=== PATIENT | female | born 1985 | race Caucasian/White ===

== ENCOUNTER → 2016-06-09 | Outpatient (CLI) | payer OTHER ==
[~2016-06-09] MED LIST: ATIV0.5T3 PO; CLINDAMYCIN PO; COLA50CA3 PO; IBUP80TA PO; KEFL250C6 PO; LEVO500T PO; OXYC-208 PO; PERCOCET PO; PREN27TA3 PO; TYLE325T5 PO
[2016-06-10 08:40] LABS: HIV SCRN NEGATIVE (NEGATIVE); HIV SCRN1 NEGATIVE (NEGATIVE)
[2016-06-10 08:41] LABS: CONTROL LINE INT CTR LINE PRESENT
== END ==
LOC: M SMT 14:46
PROVIDERS: ATTEND Advanced Practice Midwife
DX: Z11.3 Encounter for screening for infections with a predominantly sexual mode of transmission (principal)

== ENCOUNTER 2016-06-29 06:13 | Emergency (ER) | payer OTHER ==
[2016-06-29 08:26] LABS: BASO % 0.4 % (0.0-1.0); EOS # 0.3 K/mm3 (0.0-0.50); EOS % 3.3 % (0.0-3.0); LARGE UNSTAINED CELL # 0.1 K/mm3 (0.0-0.4); LARGE UNSTAINED CELL % 1.1 % (0.0-4.0); LYMPH # 2.2 K/mm3 (1.5-4.5); LYMPH % 22.4 % (24.0-44.0); MEAN CORPUSCULAR HEMOGLOBIN 30.7 pg (27.0-33.0); MEAN CORPUSCULAR HGB CONC 34.9 g/dl (32.0-36.5); MEAN CORPUSCULAR VOLUME 87.9 fl (80.0-96.0); MONO # 0.6 K/mm3 (0.0-0.8); MONO % 6.3 % (0.0-5.0); NEUTROPHILS # 6.3 K/mm3 (1.8-7.7); NEUTROPHILS % 66.6 % (36.0-66.0); PLATELET COUNT, AUTOMATED 321 k/mm3 (150-450); RED CELL DISTRIBUTION WIDTH 12.4 % (11.5-14.5); WHITE BLOOD COUNT 9.4 K/mm3 (4.0-10.0)
[2016-06-29 08:35] LABS: ALBUMIN 3.3 GM/DL (3.2-5.2); ALBUMIN/GLOBULIN RATIO 0.92 (1.00-1.93); ALKALINE PHOSPHATASE 113 U/L (45-117); ALT/SGPT 69 U/L (12-78); ANION GAP 9 MEQ/L (8-16); AST/SGOT 25 U/L (15-37); BILIRUBIN,DIRECT < 0.1 MG/DL (0.0-0.2); BILIRUBIN,TOTAL < 0.1 MG/DL (0.2-1.0); BLOOD UREA NITROGEN 10 MG/DL (7-18); CALCIUM LEVEL 8.8 MG/DL (8.5-10.1); CARBON DIOXIDE LEVEL 25 MEQ/L (21-32); CHLORIDE LEVEL 108 MEQ/L (98-107); CREATININE FOR GFR 0.61 MG/DL (0.55-1.02); GLOMERULAR FILTRATION RATE > 60.0 (>60); GLUCOSE, FASTING 143 MG/DL (70-105); POTASSIUM SERUM 4.1 MEQ/L (3.5-5.1); SODIUM LEVEL 142 MEQ/L (136-145); TOTAL PROTEIN 6.9 GM/DL (6.4-8.2)
[2016-06-29 08:52] LABS: CONTROL LINE UCG INT CTR LINE PRESENT
[2016-06-29] MEDS ORDERED: GI COCKTAIL 50ML BTL(HYOSCYAMINE/MAALOX/LIDOCAINE VISCOUS)(1:3:1) As Ordered ONE (09:27)
[2016-06-29] MEDS ORDERED: PANTOPRAZOLE 40MG INJ (PROTONIX) (C9113) As Ordered ONE (09:27)
[2016-06-29] MEDS ORDERED: ONDANSETRON 4MG/2ML VIAL (J2405) As Ordered ONE (09:27)
--- NOTE | 2016-06-29 10:35 | EDDOCDS ---
Nurse's Notes [facility] Name: Naina Hartman Age: 30 yrs Sex: Female : 1985 Arrival Date: 06/29/2016 Time: 06:13 Bed 13 Private MD: Diagnosis: Abdominal and pelvic pain;Nausea and vomiting Presentation: 06/29 06:20 Presenting complaint: Patient states: she has been having upset stomach for several cz days better for one but than pain and discomfort returned .pt reports sulfur tasting belching. Risk factors: the patient reports no vaginal bleeding. Adult Sepsis Screening: The patient does not have new or worsening altered mentation. Patient's respiratory rate is less than 22. Systolic blood pressure is greater than 100. Patient has a qSOFA score of 0- Negative Sepsis Screen. Suicide/Homicide risk assessment- the patient denies having any suicidal and/or homicidal ideations and does not present with any other emotional, behavioral or mental health complaints. Status: Patient is not a center sales and service associate or dependent. Transition of care: patient was not received from another setting of care. 06:20 Acuity: TORREY Level 3 cz 06:20 Method Of Arrival: Walkin/Carried/Asstd cz Triage Assessment: 06:26 General: Appears uncomfortable. Pain: Location: abdomen Pain currently is 6 out of 10 cz on a pain scale. HIV screening NA for this visit Offered previously. 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 Xanax Oral as needed - PMHx: Anxiety; - PSHx: ; laproscopic procedures; back surgery for tumor; - Social history: Smoking status: Patient uses tobacco products, light tobacco smoker. No barriers to communication noted, The patient speaks fluent Niuean, Speaks appropriately for age. - Family history: Not pertinent. - : The pt / caregiver states he / she is not on anticoagulants. Home medication list is obtained from the patient. - Exposure Risk Screening:: None identified. Screenin:02 Screening information is obtained from the patient. Fall risk: No risks identified. ml6 Assistance ADL's: requires no assistance with activities of daily living. Abuse/DV Screen: The patient / caregiver reports he/she is: not in a situation that causes fear, pain or injury. Nutritional screening: No deficits noted. Advance Directives: Currently, there is no health care proxy. home support is adequate. Assessment: 08:01 General: Appears in no apparent distress, Behavior is appropriate for age, cooperative. ml6 Pain: Location: right upper quadrant and left upper quadrant Pain currently is 5 out of 10 on a pain scale. Pain does not radiate. Quality of pain is described as aching, crampy, Pain began 2-3 days ago Is continuous Alleviated by nothing. Aggravated by increased activity. Neurological: No deficits noted. Level of Consciousness is awake, alert, Oriented to person, place, time. Cardiovascular: No deficits noted. Capillary refill < 3 seconds is brisk in bilateral fingers toes Heart tones S1 S2 present. Respiratory: No deficits noted. Airway is patent Respiratory effort is even, unlabored, Respiratory pattern is regular, symmetrical, Breath sounds are clear bilaterally. GI: Abdomen is obese, Bowel sounds present X 4 quads. Abd is soft X 4 quads Abd is tender to palpation in right upper quadrant and left upper quadrant Denies diarrhea, nausea, vomiting. 10:32 General: Appears in no apparent distress, Behavior is appropriate for age, cooperative. ml6 Pain: Denies pain. Neurological: No deficits noted. Level of Consciousness is awake, alert, Oriented to person, place, time. Cardiovascular: No deficits noted. Capillary refill < 3 seconds is brisk in bilateral fingers toes. Respiratory: No deficits noted. Airway is patent Respiratory effort is even, unlabored, Respiratory pattern is regular, symmetrical, Breath sounds are clear bilaterally. GI: Abdomen is obese, Bowel sounds present X 4 quads. Abd is soft and non tender Abd is soft X 4 quads. Vital Signs: 06:26 BP 137 / 104; Pulse 100; Resp 16; Temp 95.1(T); Pulse Ox 100% on R/A; Weight 102.06 kg; cz Height 5 ft. 6 in. (167.64 cm); 08:01 Temp 97.8(O); ml6 06:26 Body Mass Index 36.32 (102.06 kg, 167.64 cm) cz Vitals: 06:26 Log In Time: June 29, 2016 at 06:13. ED Course: 06:15 Patient visited by Laure Haque. gjb 06:15 Patient moved to Waiting gjb 06:20 Patient moved to Triage 1 cz 06:25 Triage Initiated cz 06:28 Patient moved to Pre RCE cz 07:12 Patient moved to 13 [facility] 07:24 Ashley Moralez MD is Attending Physician. fg 07:24 Patient visited by Ashley Moralez MD. fg 07:44 Patient visited by Bo Sutton PCA. jlf 08:00 Basic Metabolic Profile Sent. ml6 08:00 CBC with Diff Sent. ml6 08:00 Lipase Sent. ml6 08:00 Liver Profile Sent. ml6 08:00 Urinalysis Sent. ml6 08:00 Urine Test-In Lab Sent. ml6 08:00 Urine Culture Sent. ml6 08:00 Inserted peripheral IV: 20gauge IV in right forearm and blood collected. Patient ml6 tolerated the procedure well. Labs drawn. (by ED staff). Sent per order to lab. 08:02 The patient / caregiver is instructed regarding the plan of care and ED course. ml6 08:04 [facility] Payment Agreement was scanned into [employer] and attached to record. lg 08:17 Patient visited by Ferdinand Jackson RN. ml6 09:23 [facility] Payment Agreement was scanned into [employer] and attached to record. lg 09:25 Patient visited by Ferdinand Jackson RN. ml6 10:15 Patient visited by Bo Sutton PCA. [facility] 10:33 Discontinued IV bleeding controlled, pressure dressing applied, No redness/swelling at ml6 site. No procedures done that require assistance. Administered Medications: 09:25 Drug: pantoprazole 40 mg [pantoprazole 40 mg intravenous solution] Route: IV; Rate: ml6 bolus; Site: right forearm; 09:26 Drug: Ondansetron 4 mg [ondansetron HCl 2 mg/mL intravenous solution (2 mL)] Route: ml6 IVP; Site: right forearm; 09:26 Drug: GI Cocktail - (Alum-Mag Hydroxide-Simeth Suspension 225 mg-200 mg-25 mg/5 mL 30 ml6 ml, Lidocaine Liquid 2 % 10 ml, Hyoscyamine Liquid 10 ml) Route: PO; Order Results: Lab Order: Basic Metabolic Profile; SPEC'M 06/29/16 07:42 Test: GLUCOSE, FASTING; Value: 143; Range: 70-105; Abnormal: Above high normal; Units: MG/DL; Status: F Test: BLOOD UREA NITROGEN; Value: 10; Range: 7-18; Units: MG/DL; Status: F Test: CREATININE FOR GFR; Value: 0.61; Range: 0.55-1.02; Units: MG/DL; Status: F Test: GLOMERULAR FILTRATION RATE; Value: > 60.0; Range: >60; Status: F Test: SODIUM LEVEL; Value: 142; Range: 136-145; Units: MEQ/L; Status: F Test: POTASSIUM SERUM; Value: 4.1; Range: 3.5-5.1; Units: MEQ/L; Status: F Test: CHLORIDE LEVEL; Value: 108; Range: 98-107; Abnormal: Above high normal; Units: MEQ/L; Status: F Test: CARBON DIOXIDE LEVEL; Value: 25; Range: 21-32; Units: MEQ/L; Status: F Test: ANION GAP; Value: 9; Range: 8-16; Units: MEQ/L; Status: F Test: CALCIUM LEVEL; Value: 8.8; Range: 8.5-10.1; Units: MG/DL; Status: F Test Note: ; Units are mL/min/1.73 m2 Chronic Kidney Disease Staging per NKF: Stage I & II GFR >=60 Normal to Mildly Decreased Stage III GFR 30-59 Moderately Decreased Stage IV GFR 15-29 Severely Decreased Stage V GFR <15 Very Little GFR Left ESRD GFR <15 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 Lab Order: CBC with Diff; SPEC'M 06/29/16 07:42 Test: WHITE BLOOD COUNT; Value: 9.4; Range: 4.0-10.0; Units: K/mm3; Status: F Test: RED BLOOD COUNT; Value: 5.00; Range: 4.00-5.40; Units: M/mm3; Status: F Test: HEMOGLOBIN; Value: 15.3; Range: 12.0-16.0; Units: g/dl; Status: F Test: HEMATOCRIT; Value: 44.0; Range: 36.0-47.0; Units: %; Status: F Test: MEAN CORPUSCULAR VOLUME; Value: 87.9; Range: 80.0-96.0; Units: fl; Status: F Test: MEAN CORPUSCULAR HEMOGLOBIN; Value: 30.7; Range: 27.0-33.0; Units: pg; Status: F Test: MEAN CORPUSCULAR HGB CONC; Value: 34.9; Range: 32.0-36.5; Units: g/dl; Status: F Test: RED CELL DISTRIBUTION WIDTH; Value: 12.4; Range: 11.5-14.5; Units: %; Status: F Test: PLATELET COUNT, AUTOMATED; Value: 321; Range: 150-450; Units: k/mm3; Status: F Test: NEUTROPHILS %; Value: 66.6; Range: 36.0-66.0; Abnormal: Above high normal; Units: %; Status: F Test: LYMPH %; Value: 22.4; Range: 24.0-44.0; Abnormal: Below low normal; Units: %; Status: F Test: MONO %; Value: 6.3; Range: 0.0-5.0; Abnormal: Above high normal; Units: %; Status: F Test: EOS %; Value: 3.3; Range: 0.0-3.0; Abnormal: Above high normal; Units: %; Status: F Test: BASO %; Value: 0.4; Range: 0.0-1.0; Units: %; Status: F Test: LARGE UNSTAINED CELL %; Value: 1.1; Range: 0.0-4.0; Units: %; Status: F Test: NEUTROPHILS #; Value: 6.3; Range: 1.8-7.7; Units: K/mm3; Status: F Test: LYMPH #; Value: 2.2; Range: 1.5-4.5; Units: K/mm3; Status: F Test: MONO #; Value: 0.6; Range: 0.0-0.8; Units: K/mm3; Status: F Test: EOS #; Value: 0.3; Range: 0.0-0.50; Units: K/mm3; Status: F Test: BASO #; Value: 0.0; Range: 0.0-0.2; Units: K/mm3; Status: F Test: LARGE UNSTAINED CELL #; Value: 0.1; Range: 0.0-0.4; Units: K/mm3; Status: F Lab Order: Lipase; SPEC'M 06/29/16 07:42 Test: LIPASE; Value: 262; Range: 73-393; Units: U/L; Status: F Lab Order: Liver Profile; [facility] 06/29/16 07:42 Test: AST/SGOT; Value: 25; Range: 15-37; Units: U/L; Status: F Test: ALT/SGPT; Value: 69; Range: 12-78; Units: U/L; Status: F Test: ALKALINE PHOSPHATASE; Value: 113; Range: 45-117; Units: U/L; Status: F Test: BILIRUBIN,TOTAL; Value: < 0.1; Range: 0.2-1.0; Abnormal: Below low normal; Units: MG/DL; Status: F Test: BILIRUBIN,DIRECT; Value: < 0.1; Range: 0.0-0.2; Units: MG/DL; Status: F Test: TOTAL PROTEIN; Value: 6.9; Range: 6.4-8.2; Units: GM/DL; Status: F Test: ALBUMIN; Value: 3.3; Range: 3.2-5.2; Units: GM/DL; Status: F Test: ALBUMIN/GLOBULIN RATIO; Value: 0.92; Range: 1.00-1.93; Abnormal: Below low normal; Status: F Lab Order: Urinalysis; [facility] 06/29/16 07:42 Test: APPEARANCE, URINE; Value: HAZY; Range: CLEAR; Status: F Test: COLOR, URINE; Value: YELLOW; Range: YELLOW; Status: F Test: PH,URINE; Value: 5.0; Range: 5.0-9.0; Units: UNITS; Status: F Test: SPECIFIC GRAVITY URINE AUTO; Value: 1.025; Range: 1.002-1.035; Status: F Test: PROTEIN, URINE AUTO; Value: NEGATIVE; Range: NEGATIVE; Units: mg/dL; Status: F Test: GLUCOSE, URINE (UA) AUTO; Value: NEGATIVE; Range: NEGATIVE; Units: mg/dL; Status: F Test: KETONE, URINE AUTO; Value: NEGATIVE; Range: NEGATIVE; Units: mg/dL; Status: F Test: UROBILINOGEN, URINE AUTO; Value: 0.2; Range: 0.0-2.0; Units: mg/dL; Status: F Test: BILIRUBIN, URINE AUTO; Value: NEGATIVE; Range: NEGATIVE; Status: F Test: NITRITE, URINE AUTO; Value: NEGATIVE; Range: NEGATIVE; Status: F Test: LEUKOCYTE ESTERASE, URINE AUTO; Value: NEGATIVE; Range: NEGATIVE; Status: F Test: BLOOD, URINE BLOOD; Value: NEGATIVE; Range: NEGATIVE; Status: F Test: WBC, URINE AUTO; Value: 2; Range: 0-3; Units: /HPF; Status: F Test: RBC, URINE AUTO; Value: 3; Range: 0-3; Units: /HPF; Status: F Test: BACTERIA, URINE AUTO; Value: NEGATIVE; Range: NEGATIVE; Status: F Test: SQUAMOUS EPITHELIAL CELL UR AU; Value: 4; Range: 0-6; Units: /HPF; Status: F Test: MUCUS, URINE; Value: SMALL; Range: NEGATIVE; Status: F Test: HYALINE CAST, URINE AUTO; Value: 0; Range: 0-1; Units: /LPF; Status: F Lab Order: Urine Test-In Lab; SPEC'M 06/29/16 07:42 Test: URINE PREG TEST; Value: NEGATIVE; Range: NEGATIVE; Status: F Outcome: 10:17 Discharge ordered by Provider. fg 10:33 Discharge Assessment: patient administered narcotics - no. The following High Risk ml6 Discharge criteria are identified: None. Condition: stable. Discharge instructions given to patient, Instructed on discharge instructions, follow up and referral plans. medication usage, Demonstrated understanding of instructions, medications, Pt was receptive of discharge instructions/ teaching. No special radiology studies were completed. Property :Personal belongings accompany Pt. 10:34 Patient left the ED. ml6 Signatures: Florentin Mcintyre, Balbir Holman RN, Ferdinand Flower lg, RN RN ml6 Bo Sutton, CLINICAL EDUCATION MANAGER CLINICAL EDUCATION MANAGER jlf Jaye Garcia, Videotape Sales Representative Unit Ashley Mccormick MD MD fg Beck, Gabriela gjb MTDD
--- NOTE | 2016-06-29 10:35 | EDDOCDS ---
Physician Documentation [facility] Name: Naina Hartman Age: 30 yrs Sex: Female : 1985 Arrival Date: 06/29/2016 Time: 06:13 Bed 13 Private MD: Disposition: 06/29/16 10:17 Discharged to Home/Self Care. Impression: Abdominal and pelvic pain, Nausea and vomiting. - Condition is Stable. - Discharge Instructions: Abdominal Pain, Adult, Nausea and Vomiting, [id number]. - Medication Reconciliation, Local Pharmacy Hours form. - Follow up: Private Physician; When: Call to arrange an appointment; Reason: Continuance of care. - Problem is new. - Symptoms have improved. Historical: - Allergies: SULFA (SULFONAMIDES); - Home Meds: 1. Xanax Oral as needed - PMHx: Anxiety; - PSHx: ; laproscopic procedures; back surgery for tumor; - Social history: Smoking status: Patient uses tobacco products, light tobacco smoker. No barriers to communication noted, The patient speaks fluent Yoruba, Speaks appropriately for age. - Family history: Not pertinent. - : The pt / caregiver states he / she is not on anticoagulants. Home medication list is obtained from the patient. - Exposure Risk Screening:: None identified. 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 6 in. (167.64 cm); 08:01 Temp 97.8(O); ml6 06:26 Body Mass Index 36.32 (102.06 kg, 167.64 cm) cz MDM: 07:24 IV Saline Lock ordered. fg 07:24 Undress patient appropriately for examination ordered. fg 07:25 Basic Metabolic Profile Ordered. EDMS 07:25 CBC with Diff Ordered. EDMS 07:25 Lipase Ordered. EDMS 07:25 Liver Profile Ordered. EDMS 07:25 Urinalysis Ordered. EDMS 07:25 Urine Test-In Lab Ordered. EDMS 07:25 Urine Culture Ordered. EDMS 07:26 NOTHING BY MOUTH+DIET ordered. EDMS 07:44 Financial registration complete. lg 08:04 [facility] Payment Agreement was scanned into [employer] and attached to record. lg 08:23 Ondansetron 4 mg IVP once ordered. fg 08:23 GI Cocktail - (Alum-Mag Hydroxide-Simeth 30 ml, Lidocaine 10 ml, Hyoscyamine 10 ml) PO fg once; Pre-mixed 50mL unit dose ordered. 08:23 pantoprazole 40 mg IV at bolus once ordered. fg 09:23 [facility] [place] Agreement was scanned into [employer] and attached to record. lg Administered Medications: 09:25 Drug: pantoprazole 40 mg [pantoprazole 40 mg intravenous solution] Route: IV; Rate: ml6 bolus; Site: right forearm; 09:26 Drug: Ondansetron 4 mg [ondansetron HCl 2 mg/mL intravenous solution (2 mL)] Route: ml6 IVP; Site: right forearm; 09:26 Drug: GI Cocktail - (Alum-Mag Hydroxide-Simeth Suspension 225 mg-200 mg-25 mg/5 mL 30 ml6 ml, Lidocaine Liquid 2 % 10 ml, Hyoscyamine Liquid 10 ml) Route: PO; Signatures: Dispatcher [employer] EDMS Florentin Mcintyre, BLESSING RN cz Balbir Grider, Fly Reg lg Ferdinand Jackson RN RN ml6 Ashley Moralez MD MD The chart was reviewed and I authenticate all verbal orders and agree with the evaluation and treatment provided.Attachments: 09:23 [facility] Payment Agreement lg MTDD
--- NOTE | 2016-07-01 11:35 | EDDOCDS ---
Nurse's Notes [facility] Name: Naina Hartman Age: 30 yrs Sex: Female : 1985 Arrival Date: 06/29/2016 Time: 06:13 Bed 13 Private MD: Diagnosis: Abdominal and pelvic pain;Nausea and vomiting Presentation: 06/29 06:20 Presenting complaint: Patient states: she has been having upset stomach for several cz days better for one but than pain and discomfort returned .pt reports sulfur tasting belching. Risk factors: the patient reports no vaginal bleeding. Adult Sepsis Screening: The patient does not have new or worsening altered mentation. Patient's respiratory rate is less than 22. Systolic blood pressure is greater than 100. Patient has a qSOFA score of 0- Negative Sepsis Screen. Suicide/Homicide risk assessment- the patient denies having any suicidal and/or homicidal ideations and does not present with any other emotional, behavioral or mental health complaints. Status: Patient is not a nutrition services manager or dependent. Transition of care: patient was not received from another setting of care. 06:20 Acuity: TORREY Level 3 cz 06:20 Method Of Arrival: Walkin/Carried/Asstd cz Triage Assessment: 06:26 General: Appears uncomfortable. Pain: Location: abdomen Pain currently is 6 out of 10 cz on a pain scale. HIV screening NA for this visit Offered previously. 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 Xanax Oral as needed - PMHx: Anxiety; - PSHx: ; laproscopic procedures; back surgery for tumor; - Social history: Smoking status: Patient uses tobacco products, light tobacco smoker. No barriers to communication noted, The patient speaks fluent Pakistani, Speaks appropriately for age. - Family history: Not pertinent. - : The pt / caregiver states he / she is not on anticoagulants. Home medication list is obtained from the patient. - Exposure Risk Screening:: None identified. Screenin:02 Screening information is obtained from the patient. Fall risk: No risks identified. ml6 Assistance ADL's: requires no assistance with activities of daily living. Abuse/DV Screen: The patient / caregiver reports he/she is: not in a situation that causes fear, pain or injury. Nutritional screening: No deficits noted. Advance Directives: Currently, there is no health care proxy. home support is adequate. Assessment: 08:01 General: Appears in no apparent distress, Behavior is appropriate for age, cooperative. ml6 Pain: Location: right upper quadrant and left upper quadrant Pain currently is 5 out of 10 on a pain scale. Pain does not radiate. Quality of pain is described as aching, crampy, Pain began 2-3 days ago Is continuous Alleviated by nothing. Aggravated by increased activity. Neurological: No deficits noted. Level of Consciousness is awake, alert, Oriented to person, place, time. Cardiovascular: No deficits noted. Capillary refill < 3 seconds is brisk in bilateral fingers toes Heart tones S1 S2 present. Respiratory: No deficits noted. Airway is patent Respiratory effort is even, unlabored, Respiratory pattern is regular, symmetrical, Breath sounds are clear bilaterally. GI: Abdomen is obese, Bowel sounds present X 4 quads. Abd is soft X 4 quads Abd is tender to palpation in right upper quadrant and left upper quadrant Denies diarrhea, nausea, vomiting. 10:32 General: Appears in no apparent distress, Behavior is appropriate for age, cooperative. ml6 Pain: Denies pain. Neurological: No deficits noted. Level of Consciousness is awake, alert, Oriented to person, place, time. Cardiovascular: No deficits noted. Capillary refill < 3 seconds is brisk in bilateral fingers toes. Respiratory: No deficits noted. Airway is patent Respiratory effort is even, unlabored, Respiratory pattern is regular, symmetrical, Breath sounds are clear bilaterally. GI: Abdomen is obese, Bowel sounds present X 4 quads. Abd is soft and non tender Abd is soft X 4 quads. Vital Signs: 06:26 BP 137 / 104; Pulse 100; Resp 16; Temp 95.1(T); Pulse Ox 100% on R/A; Weight 102.06 kg; cz Height 5 ft. 6 in. (167.64 cm); 08:01 Temp 97.8(O); ml6 06:26 Body Mass Index 36.32 (102.06 kg, 167.64 cm) cz Vitals: 06:26 Log In Time: June 29, 2016 at 06:13. ED Course: 06:15 Patient visited by Laure Haque. gjb 06:15 Patient moved to Waiting gjb 06:20 Patient moved to Triage 1 cz 06:25 Triage Initiated cz 06:28 Patient moved to Pre RCE cz 07:12 Patient moved to [facility] 07:24 Ashley Moralez MD is Attending Physician. fg 07:24 Patient visited by Ashley Moralez MD. fg 07:44 Patient visited by Bo Sutton PCA. jlf 08:00 Basic Metabolic Profile Sent. ml6 08:00 CBC with Diff Sent. ml6 08:00 Lipase Sent. ml6 08:00 Liver Profile Sent. ml6 08:00 Urinalysis Sent. ml6 08:00 Urine Test-In Lab Sent. ml6 08:00 Urine Culture Sent. ml6 08:00 Inserted peripheral IV: 20gauge IV in right forearm and blood collected. Patient ml6 tolerated the procedure well. Labs drawn. (by ED staff). Sent per order to lab. 08:02 The patient / caregiver is instructed regarding the plan of care and ED course. ml6 08:04 [facility] was scanned into [employer] and attached to record. lg 08:17 Patient visited by Ferdinand Jackson RN. ml6 09:23 [facility] [place] Agreement was scanned into [employer] and attached to record. lg 09:25 Patient visited by Ferdinand Jackson RN. ml6 10:15 Patient visited by Bo Sutton PCA. jlf 10:33 Discontinued IV bleeding controlled, pressure dressing applied, No redness/swelling at ml6 site. No procedures done that require assistance. 17:45 T-Sheet-- Draft Copy was scanned into [employer] and attached to record. klr Administered Medications: 09:25 Drug: pantoprazole 40 mg [pantoprazole 40 mg intravenous solution] Route: IV; Rate: ml6 bolus; Site: right forearm; 09:26 Drug: Ondansetron 4 mg [ondansetron HCl 2 mg/mL intravenous solution (2 mL)] Route: ml6 IVP; Site: right forearm; 09:26 Drug: GI Cocktail - (Alum-Mag Hydroxide-Simeth Suspension 225 mg-200 mg-25 mg/5 mL 30 ml6 ml, Lidocaine Liquid 2 % 10 ml, Hyoscyamine Liquid 10 ml) Route: PO; Order Results: Lab Order: Basic Metabolic Profile; SPEC'M 06/29/16 07:42 Test: GLUCOSE, FASTING; Value: 143; Range: 70-105; Abnormal: Above high normal; Units: MG/DL; Status: F Test: BLOOD UREA NITROGEN; Value: 10; Range: 7-18; Units: MG/DL; Status: F Test: CREATININE FOR GFR; Value: 0.61; Range: 0.55-1.02; Units: MG/DL; Status: F Test: GLOMERULAR FILTRATION RATE; Value: > 60.0; Range: >60; Status: F Test: SODIUM LEVEL; Value: 142; Range: 136-145; Units: MEQ/L; Status: F Test: POTASSIUM SERUM; Value: 4.1; Range: 3.5-5.1; Units: MEQ/L; Status: F Test: CHLORIDE LEVEL; Value: 108; Range: 98-107; Abnormal: Above high normal; Units: MEQ/L; Status: F Test: CARBON DIOXIDE LEVEL; Value: 25; Range: 21-32; Units: MEQ/L; Status: F Test: ANION GAP; Value: 9; Range: 8-16; Units: MEQ/L; Status: F Test: CALCIUM LEVEL; Value: 8.8; Range: 8.5-10.1; Units: MG/DL; Status: F Test Note: ; Units are mL/min/1.73 m2 Chronic Kidney Disease Staging per NKF: Stage I & II GFR >=60 Normal to Mildly Decreased Stage III GFR 30-59 Moderately Decreased Stage IV GFR 15-29 Severely Decreased Stage V GFR <15 Very Little GFR Left ESRD GFR <15 on FITNESS TRAINER Lab Order: CBC with Diff; SPEC'M 06/29/16 07:42 Test: WHITE BLOOD COUNT; Value: 9.4; Range: 4.0-10.0; Units: K/mm3; Status: F Test: RED BLOOD COUNT; Value: 5.00; Range: 4.00-5.40; Units: M/mm3; Status: F Test: HEMOGLOBIN; Value: 15.3; Range: 12.0-16.0; Units: g/dl; Status: F Test: HEMATOCRIT; Value: 44.0; Range: 36.0-47.0; Units: %; Status: F Test: MEAN CORPUSCULAR VOLUME; Value: 87.9; Range: 80.0-96.0; Units: fl; Status: F Test: MEAN CORPUSCULAR HEMOGLOBIN; Value: 30.7; Range: 27.0-33.0; Units: pg; Status: F Test: MEAN CORPUSCULAR HGB CONC; Value: 34.9; Range: 32.0-36.5; Units: g/dl; Status: F Test: RED CELL DISTRIBUTION WIDTH; Value: 12.4; Range: 11.5-14.5; Units: %; Status: F Test: PLATELET COUNT, AUTOMATED; Value: 321; Range: 150-450; Units: k/mm3; Status: F Test: NEUTROPHILS %; Value: 66.6; Range: 36.0-66.0; Abnormal: Above high normal; Units: %; Status: F Test: LYMPH %; Value: 22.4; Range: 24.0-44.0; Abnormal: Below low normal; Units: %; Status: F Test: MONO %; Value: 6.3; Range: 0.0-5.0; Abnormal: Above high normal; Units: %; Status: F Test: EOS %; Value: 3.3; Range: 0.0-3.0; Abnormal: Above high normal; Units: %; Status: F Test: BASO %; Value: 0.4; Range: 0.0-1.0; Units: %; Status: F Test: LARGE UNSTAINED CELL %; Value: 1.1; Range: 0.0-4.0; Units: %; Status: F Test: NEUTROPHILS #; Value: 6.3; Range: 1.8-7.7; Units: K/mm3; Status: F Test: LYMPH #; Value: 2.2; Range: 1.5-4.5; Units: K/mm3; Status: F Test: MONO #; Value: 0.6; Range: 0.0-0.8; Units: K/mm3; Status: F Test: EOS #; Value: 0.3; Range: 0.0-0.50; Units: K/mm3; Status: F Test: BASO #; Value: 0.0; Range: 0.0-0.2; Units: K/mm3; Status: F Test: LARGE UNSTAINED CELL #; Value: 0.1; Range: 0.0-0.4; Units: K/mm3; Status: F Lab Order: Lipase; SPEC'M 06/29/16 07:42 Test: LIPASE; Value: 262; Range: 73-393; Units: U/L; Status: F Lab Order: Liver Profile; SPEC'M 06/29/16 07:42 Test: AST/SGOT; Value: 25; Range: 15-37; Units: U/L; Status: F Test: ALT/SGPT; Value: 69; Range: 12-78; Units: U/L; Status: F Test: ALKALINE PHOSPHATASE; Value: 113; Range: 45-117; Units: U/L; Status: F Test: BILIRUBIN,TOTAL; Value: < 0.1; Range: 0.2-1.0; Abnormal: Below low normal; Units: MG/DL; Status: F Test: BILIRUBIN,DIRECT; Value: < 0.1; Range: 0.0-0.2; Units: MG/DL; Status: F Test: TOTAL PROTEIN; Value: 6.9; Range: 6.4-8.2; Units: GM/DL; Status: F Test: ALBUMIN; Value: 3.3; Range: 3.2-5.2; Units: GM/DL; Status: F Test: ALBUMIN/GLOBULIN RATIO; Value: 0.92; Range: 1.00-1.93; Abnormal: Below low normal; Status: F Lab Order: Urinalysis; SPEC' 06/29/16 07:42 Test: APPEARANCE, URINE; Value: HAZY; Range: CLEAR; Status: F Test: COLOR, URINE; Value: YELLOW; Range: YELLOW; Status: F Test: PH,URINE; Value: 5.0; Range: 5.0-9.0; Units: UNITS; Status: F Test: SPECIFIC GRAVITY URINE AUTO; Value: 1.025; Range: 1.002-1.035; Status: F Test: PROTEIN, URINE AUTO; Value: NEGATIVE; Range: NEGATIVE; Units: mg/dL; Status: F Test: GLUCOSE, URINE (UA) AUTO; Value: NEGATIVE; Range: NEGATIVE; Units: mg/dL; Status: F Test: KETONE, URINE AUTO; Value: NEGATIVE; Range: NEGATIVE; Units: mg/dL; Status: F Test: UROBILINOGEN, URINE AUTO; Value: 0.2; Range: 0.0-2.0; Units: mg/dL; Status: F Test: BILIRUBIN, URINE AUTO; Value: NEGATIVE; Range: NEGATIVE; Status: F Test: NITRITE, URINE AUTO; Value: NEGATIVE; Range: NEGATIVE; Status: F Test: LEUKOCYTE ESTERASE, URINE AUTO; Value: NEGATIVE; Range: NEGATIVE; Status: F Test: BLOOD, URINE BLOOD; Value: NEGATIVE; Range: NEGATIVE; Status: F Test: WBC, URINE AUTO; Value: 2; Range: 0-3; Units: /HPF; Status: F Test: RBC, URINE AUTO; Value: 3; Range: 0-3; Units: /HPF; Status: F Test: BACTERIA, URINE AUTO; Value: NEGATIVE; Range: NEGATIVE; Status: F Test: SQUAMOUS EPITHELIAL CELL UR AU; Value: 4; Range: 0-6; Units: /HPF; Status: F Test: MUCUS, URINE; Value: SMALL; Range: NEGATIVE; Status: F Test: HYALINE CAST, URINE AUTO; Value: 0; Range: 0-1; Units: /LPF; Status: F Lab Order: Urine Test-In Lab; SPEC'M 06/29/16 07:42 Test: URINE PREG TEST; Value: NEGATIVE; Range: NEGATIVE; Status: F Lab Order: Urine Culture; SPEC'M 06/29/16 07:42 Test: URINE CULTURE; Value: <EXTERNAL COMMENT eCWMed> FULL REPORT IN LAB NOTES (eCW and Medent).; Status: F Test: URINE CULTURE; Value: URINE CULTURE RESULT NO GROWTH; Status: F Outcome: 10:17 Discharge ordered by Provider. 10:33 Discharge Assessment: patient administered narcotics - no. The following High Risk ml6 Discharge criteria are identified: None. Condition: stable. Discharge instructions given to patient, Instructed on discharge instructions, follow up and referral plans. medication usage, Demonstrated understanding of instructions, medications, Pt was receptive of discharge instructions/ teaching. No special radiology studies were completed. Property :Personal belongings accompany Pt. 10:34 Patient left the ED. ml6 Signatures: Florentin Mcintyre, RN RN Balbir Garcia, Fly Reg Ferdinand Camargo RN RN ml6 Bo Sutton, OSTOMY RN OSTOMY RN jlf Jaye Garcia, Nurse Transplant Unit jlm Moralez, AshleyMD MD torri harper Gabriela gjb Redder, Kathie klr Chart Complete MTDD
--- NOTE | 2016-07-01 11:35 | EDDOCDS ---
Physician Documentation [facility] Name: Naina Hartman Age: 30 yrs Sex: Female : 1985 Arrival Date: 06/29/2016 Time: 06:13 Bed 13 Private MD: Disposition: 06/29/16 10:17 Discharged to Home/Self Care. Impression: Abdominal and pelvic pain, Nausea and vomiting. - Condition is Stable. - Discharge Instructions: Abdominal Pain, Adult, Nausea and Vomiting, [id number]. - Medication Reconciliation, Local Pharmacy Hours form. - Follow up: Private Physician; When: Call to arrange an appointment; Reason: Continuance of care. - Problem is new. - Symptoms have improved. Historical: - Allergies: SULFA (SULFONAMIDES); - Home Meds: 1. Xanax Oral as needed - PMHx: Anxiety; - PSHx: ; laproscopic procedures; back surgery for tumor; - Social history: Smoking status: Patient uses tobacco products, light tobacco smoker. No barriers to communication noted, The patient speaks fluent Spanish, Speaks appropriately for age. - Family history: Not pertinent. - : The pt / caregiver states he / she is not on anticoagulants. Home medication list is obtained from the patient. - Exposure Risk Screening:: None identified. 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 6 in. (167.64 cm); 08:01 Temp 97.8(O); ml6 06:26 Body Mass Index 36.32 (102.06 kg, 167.64 cm) cz MDM: 07:24 IV Saline Lock ordered. fg 07:24 Undress patient appropriately for examination ordered. fg 07:25 Basic Metabolic Profile Ordered. EDMS 07:25 CBC with Diff Ordered. EDMS 07:25 Lipase Ordered. EDMS 07:25 Liver Profile Ordered. EDMS 07:25 Urinalysis Ordered. EDMS 07:25 Urine Test-In Lab Ordered. EDMS 07:25 Urine Culture Ordered. EDMS 07:26 NOTHING BY MOUTH+DIET ordered. EDMS 07:44 Financial registration complete. lg 08:04 [facility] Payment Agreement was scanned into [employer] and attached to record. lg 08:23 Ondansetron 4 mg IVP once ordered. fg 08:23 GI Cocktail - (Alum-Mag Hydroxide-Simeth 30 ml, Lidocaine 10 ml, Hyoscyamine 10 ml) PO fg once; Pre-mixed 50mL unit dose ordered. 08:23 pantoprazole 40 mg IV at bolus once ordered. fg 09:23 [facility] Payment Agreement was scanned into [employer] and attached to record. lg 17:45 T-Sheet-- Draft Copy was scanned into [employer] and attached to record. klr Administered Medications: 09:25 Drug: pantoprazole 40 mg [pantoprazole 40 mg intravenous solution] Route: IV; Rate: ml6 bolus; Site: right forearm; : Drug: Ondansetron 4 mg [ondansetron HCl 2 mg/mL intravenous solution (2 mL)] Route: ml6 IVP; Site: right forearm; : Drug: GI Cocktail - (Alum-Mag Hydroxide-Simeth Suspension 225 mg-200 mg-25 mg/5 mL 30 ml6 ml, Lidocaine Liquid 2 % 10 ml, Hyoscyamine Liquid 10 ml) Route: PO; Signatures: Dispatcher [employer] EDMS Florentin Mcintyre, RN RN Balbir Garcia Reg Reg Ferdinand Camargo RN RN ml6 Ashley Moralez MD MD fg Redder, Kathie klr The chart was reviewed and I authenticate all verbal orders and agree with the evaluation and treatment provided.Attachments: 09:23 [facility] Payment Agreement lg 17:45 T-Sheet-- Draft Copy klr Chart Complete MTDD
--- NOTE | 2016-07-01 11:35 | EDDOCDS ---
Physician Documentation [facility] Name: Naina Hartman Age: 30 yrs Sex: Female : 1985 Arrival Date: 06/29/2016 Time: 06:13 Bed 13 Private MD: Disposition: 06/29/16 10:17 Discharged to Home/Self Care. Impression: Abdominal and pelvic pain, Nausea and vomiting. - Condition is Stable. - Discharge Instructions: Abdominal Pain, Adult, Nausea and Vomiting, [id number]. - Medication Reconciliation, Local Pharmacy Hours form. - Follow up: Private Physician; When: Call to arrange an appointment; Reason: Continuance of care. - Problem is new. - Symptoms have improved. Historical: - Allergies: SULFA (SULFONAMIDES); - Home Meds: 1. Xanax Oral as needed - PMHx: Anxiety; - PSHx: ; laproscopic procedures; back surgery for tumor; - Social history: Smoking status: Patient uses tobacco products, light tobacco smoker. No barriers to communication noted, The patient speaks fluent Estonian, Speaks appropriately for age. - Family history: Not pertinent. - : The pt / caregiver states he / she is not on anticoagulants. Home medication list is obtained from the patient. - Exposure Risk Screening:: None identified. 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 6 in. (167.64 cm); 08:01 Temp 97.8(O); ml6 06:26 Body Mass Index 36.32 (102.06 kg, 167.64 cm) cz MDM: 07:24 IV Saline Lock ordered. fg 07:24 Undress patient appropriately for examination ordered. fg 07:25 Basic Metabolic Profile Ordered. EDMS 07:25 CBC with Diff Ordered. EDMS 07:25 Lipase Ordered. EDMS 07:25 Liver Profile Ordered. EDMS 07:25 Urinalysis Ordered. EDMS 07:25 Urine Test-In Lab Ordered. EDMS 07:25 Urine Culture Ordered. EDMS 07:26 NOTHING BY MOUTH+DIET ordered. EDMS 07:44 Financial registration complete. lg 08:04 [facility] Payment Agreement was scanned into [employer] and attached to record. lg 08:23 Ondansetron 4 mg IVP once ordered. fg 08:23 GI Cocktail - (Alum-Mag Hydroxide-Simeth 30 ml, Lidocaine 10 ml, Hyoscyamine 10 ml) PO fg once; Pre-mixed 50mL unit dose ordered. 08:23 pantoprazole 40 mg IV at bolus once ordered. fg 09:23 [facility] Payment Agreement was scanned into [employer] and attached to record. lg 17:45 T-Sheet-- Draft Copy was scanned into [employer] and attached to record. klr Administered Medications: 09:25 Drug: pantoprazole 40 mg [pantoprazole 40 mg intravenous solution] Route: IV; Rate: ml6 bolus; Site: right forearm; : Drug: Ondansetron 4 mg [ondansetron HCl 2 mg/mL intravenous solution (2 mL)] Route: ml6 IVP; Site: right forearm; : Drug: GI Cocktail - (Alum-Mag Hydroxide-Simeth Suspension 225 mg-200 mg-25 mg/5 mL 30 ml6 ml, Lidocaine Liquid 2 % 10 ml, Hyoscyamine Liquid 10 ml) Route: PO; Signatures: Dispatcher [employer] EDMS Florentin Mcintyre, RN RN Balbir Garcia Reg Reg Ferdinand Camargo RN RN ml6 Ashley Moralez MD MD fg Redder, Kathie klr The chart was reviewed and I authenticate all verbal orders and agree with the evaluation and treatment provided.Attachments: 09:23 [facility] Payment Agreement lg 17:45 T-Sheet-- Draft Copy klr Chart Complete MTDD
== END 2016-06-29 10:34 | disposition home or self-care (01) ==
LOC: M ED 06:13
DX: R10.9 Unspecified abdominal pain (principal); F41.9 Anxiety disorder, unspecified; Z72.0 Tobacco use; Z79.3 Long term (current) use of hormonal contraceptives; Z88.2 Allergy status to sulfonamides
CPT/HCPCS: 36415; 80048; 80076; 81001; 83690; 84703; 85025; 87086; 96374; 96375; 99284; C9113; J2405

== ENCOUNTER 2016-09-18 21:06 | Emergency (ER) | payer OTHER ==
[~2016-09-18] VITALS: Ht 170.2 cm; Wt 99.8 kg
[2016-09-18] MEDS ORDERED: ZIAC2.5T PO (21:22)
[2016-09-18] MEDS ORDERED: LORA1TAB12 PO (21:22)
[2016-09-18] MEDS ORDERED: XANA0.5T PO (21:22)
[2016-09-18] MEDS ORDERED: FAMOTIDINE IV BAG 20 MG in APPROPRIATE DILUENT 1 EA IV ONE (21:30)
[2016-09-18] MEDS ORDERED: methylPREDNISolone INJ 125 MG/2 ML VIAL (J2930) IV ONE (21:30)
[2016-09-18] MEDS ORDERED: PEPC1TAB4 PO (23:24)
[2016-09-18] MEDS ORDERED: PRED20TA PO (23:24)
[2016-09-18 23:33] VITALS: BP 137/82
== END 2016-09-18 23:51 | disposition home or self-care (01) ==
LOC: M ED 22:38
DX: L23.7 Allergic contact dermatitis due to plants, except food (principal); I10 Essential (primary) hypertension; F41.9 Anxiety disorder, unspecified; Z86.32 Personal history of gestational diabetes; N80.9 Endometriosis, unspecified; F17.200 Nicotine dependence, unspecified, uncomplicated; Z79.899 Other long term (current) drug therapy; Z88.2 Allergy status to sulfonamides
CPT/HCPCS: 93041; 94760; 96374; 99284; J2930

== ENCOUNTER → 2016-10-15 | Outpatient (CLI) | payer OTHER ==
[~2016-10-15] MED LIST changes: +LORA1TAB12 PO; +PEPC1TAB4 PO; +PRED20TA PO; +XANA0.5T PO; +ZIAC2.5T PO
[2016-10-15 16:56] LABS: FREE T4 1.1 NG/DL (0.76-1.46)
== END ==
LOC: M LAB 15:40
PROVIDERS: ATTEND Internal Medicine Gastroenterology
DX: K58.0 Irritable bowel syndrome with diarrhea (principal)

== ENCOUNTER 2017-05-02 09:32 | Emergency (ER) | payer OTHER ==
[~2017-05-02] VITALS: Ht 170.2 cm; Wt 109.1 kg
[2017-05-02] MEDS ORDERED: NAPR500T PO (09:55)
[2017-05-02] MEDS ORDERED: RANI150C PO (09:55)
[2017-05-02] MEDS ORDERED: ROBA500T PO (09:55)
[2017-05-02] MEDS ORDERED: NEXP1IMP SC (09:56)
[2017-05-02] MEDS ORDERED: KETOROLAC 60 MG/2 ML VIAL (J1885) IM ONE (10:30)
[2017-05-02] MEDS ORDERED: NORCOTAB PO (11:36)
[2017-05-02 11:46] VITALS: BP 151/91
--- NOTE | 2017-05-06 09:41 | REP ---
Clinical: Pain . Technique: AP, lateral, bilateral oblique, and coned-down views. Comparison: 08/22/2015 Findings: Alignment and lordosis is maintained. The vertebral bodies including transverse process and spinous processes are intact and there is no evidence for acute fracture / compression injury or subluxation. Mild multilevel degenerative changes include early anterior spurring, endplate sclerosis and minimal disc space narrowing. Findings remain relatively similar to prior examination. Impression: Mild multilevel degenerative changes. Signed by Forest Ceja MD 05/06/2017 09:32 A
== END 2017-05-02 11:47 | disposition home or self-care (01) ==
LOC: M ED 09:32
DX: M54.41 Lumbago with sciatica, right side (principal); Z72.0 Tobacco use
CPT/HCPCS: 72110; 96372; 99283; J1885

== ENCOUNTER → 2017-05-08 | Outpatient (CLI) | payer OTHER | LOC: M RAD 06:30 | DX: M54.5 Low back pain (principal) | CPT/HCPCS: 72148 ==

== ENCOUNTER → 2017-08-21 | Outpatient (REF) | payer OTHER ==
[2017-08-25 14:13] LABS: HPV HYBRID CAPTURE II Negative (Negative)
== END ==
LOC: M LAB REF 18:02
DX: Z12.4 Encounter for screening for malignant neoplasm of cervix (principal)
CPT/HCPCS: 88142

== ENCOUNTER → 2017-12-09 | Outpatient (CLI) | payer OTHER ==
[2017-12-09 08:43] LABS: FREE T4 1.12 NG/DL (0.76-1.46)
[2017-12-10 14:14] LABS: TISSUE TRANSGLUTAMINASE IgA <2 U/mL (0-3)
== END ==
LOC: M RAD 07:31
DX: R11.2 Nausea with vomiting, unspecified (principal); R10.10 Upper abdominal pain, unspecified; R19.7 Diarrhea, unspecified; K30 Functional dyspepsia
CPT/HCPCS: 74021

== ENCOUNTER → 2018-03-27 | Outpatient (REF) | payer OTHER | LOC: M SFHCLERA 11:04 | DX: J02.9 Acute pharyngitis, unspecified (principal) ==

== ENCOUNTER → 2018-08-24 | Outpatient (REF) | payer OTHER ==
[~2018-08-24] MED LIST changes: +BISO5TAB2 PO; +HYDR-3715 PO; +NAPR-837 PO; +NEXP1IMP SC; -PEPC1TAB4 PO; +PEPC1TAB5 PO; +RANI150C PO; +ROBA500T PO
[2018-08-24 19:33] LABS: CHLAMYDIA DNA AMPLIFICATION NEGATIVE (NEGATIVE); GC DNA AMPLIFICATION NEGATIVE (NEGATIVE)
== END ==
LOC: M LAB REF 17:18
PROVIDERS: ATTEND Advanced Practice Midwife
DX: Z11.3 Encounter for screening for infections with a predominantly sexual mode of transmission (principal)

== ENCOUNTER → 2018-08-24 | Outpatient (CLI) | payer OTHER ==
[2018-08-25 11:04] LABS: HEPATITIS A ANTIBODY IGM NEGATIVE (NEGATIVE); HEPATITIS B CORE ANTIBODY IGM NEGATIVE (NEGATIVE); HEPATITIS B SURFACE ANTIGEN NEGATIVE (NEGATIVE); HEPATITIS C VIRUS ABY INDEX 0.1 INDEX (<0.8); HIV 1&2 SCREEN CENTAUR NEGATIVE (NEGATIVE)
== END ==
LOC: M SMT 14:13
PROVIDERS: ATTEND Advanced Practice Midwife
DX: Z11.3 Encounter for screening for infections with a predominantly sexual mode of transmission (principal)

== ENCOUNTER → 2018-09-14 | Outpatient (REF) | payer OTHER ==
[2018-09-16 14:28] LABS: HPV HYBRID CAPTURE II Negative (Negative)
== END ==
LOC: M LAB REF 16:57
PROVIDERS: ATTEND Advanced Practice Midwife
DX: Z12.4 Encounter for screening for malignant neoplasm of cervix (principal)

== ENCOUNTER → 2018-12-14 | Outpatient (CLI) | payer OTHER ==
[~2018-12-14] MED LIST changes: -LORA1TAB12 PO; +LORA1TAB4 PO
[2018-12-14 16:15] LABS: CHLAMYDIA DNA AMPLIFICATION NEGATIVE (NEGATIVE); GC DNA AMPLIFICATION NEGATIVE (NEGATIVE)
[2018-12-15 10:47] LABS: HEPATITIS A ANTIBODY IGM NEGATIVE (NEGATIVE); HEPATITIS B CORE ANTIBODY IGM NEGATIVE (NEGATIVE); HEPATITIS B SURFACE ANTIGEN NEGATIVE (NEGATIVE); HEPATITIS C VIRUS ABY INDEX 0.1 INDEX (<0.8); HIV 1&2 SCREEN CENTAUR NEGATIVE (NEGATIVE)
== END ==
LOC: M SMT 10:20
PROVIDERS: ATTEND Advanced Practice Midwife
DX: Z11.3 Encounter for screening for infections with a predominantly sexual mode of transmission (principal)

== ENCOUNTER → 2019-03-09 | Outpatient (CLI) | payer OTHER ==
[~2019-03-09] MED LIST changes: +LORA1TAB12 PO; -LORA1TAB4 PO
--- NOTE | 2019-03-09 11:51 | REP ---
Two-view chest: 03/09/2019. Indication: Dyspnea. Comparison: 08/22/2015. Findings: he lungs are clear. There is no pleural effusion or pneumothorax. The cardiac silhouette is unremarkable. Impression: Clear lungs. Electronically Signed by Conor Coats DO 03/09/2019 11:43 A
== END ==
LOC: M RAD 11:17
PROVIDERS: ATTEND Physician Assistant
DX: J20.9 Acute bronchitis, unspecified (principal)

== ENCOUNTER → 2019-03-18 | Outpatient (CLI) | payer OTHER ==
--- NOTE | 2019-03-18 14:19 | REP ---
CT brain: 03/18/2019. Indication: Headache. Comparison: 06/03/2008. Technique: Unenhanced axial CT images of the brain were obtained from skull base to vertex. Findings: There is no acute intracranial hemorrhage, acute cortical infarction, mass effect or hydrocephalous. Periosteal mucosal thickening is noted within the visualized ethmoid and sphenoid sinuses. The mastoid air cells appear clear. Impression: No acute intracranial process. Electronically Signed by Conor Coats DO 03/18/2019 02:11 P
== END ==
LOC: M RAD 13:20
PROVIDERS: ATTEND Physician Assistant
DX: R51 Headache (principal)

== ENCOUNTER 2019-07-25 04:50 | Emergency (ER) | payer OTHER ==
[~2019-07-25] VITALS: Ht 170.2 cm; Wt 102.3 kg
[~2019-07-25 04:50] MED LIST changes: -LORA1TAB12 PO; +LORA1TAB4 PO
[2019-07-25] MEDS ORDERED: CITA40TA4 (04:57)
[2019-07-25] MEDS ORDERED: ALPR0.5T3 (04:57)
--- NOTE | 2019-07-25 06:20 | REPVR ---
PROCEDURE INFORMATION: Exam: CT Head Without Contrast Exam date and time: 07/25/19 (6:02am) Age: 33 years old Clinical indication: Headache TECHNIQUE: Imaging protocol: Computed tomography of the head without contrast. Radiation optimization: All CT scans at this facility use at least one of these dose optimization techniques: automated exposure control; mA and/or kV adjustment per patient size (includes targeted exams where dose is matched to clinical indication); or iterative reconstruction. COMPARISON: CT HEAD of 03/18/19 FINDINGS: Brain: Normal. No hemorrhage. Unremarkable white matter. No mass effect. Ventricles: Normal. No ventriculomegaly. Bones/joints: Unremarkable. No acute fracture. Sinuses: Visualized sinuses are unremarkable. No air-fluid levels. Mastoid air cells: Visualized mastoid air cells are well aerated. Soft tissues: Unremarkable. IMPRESSION: No acute intracranial pathology is appreciated. Electronically signed by: Tiffani Santiago On 07/25/2019 06:19:51 AM
[2019-07-25] MEDS ORDERED: ONDANSETRON 4 MG ORAL DISINTEGRATING TAB (Q0162 PER 1MG) PO ONE (06:45)
[2019-07-25] MEDS ORDERED: NS 1,000 ML IV ONE (07:00)
[2019-07-25 07:33] LABS: HEMATOCRIT 44.4 % (36.0-47.0); MEAN CORPUSCULAR HEMOGLOBIN 30.7 pg (27.0-33.0); MEAN CORPUSCULAR HGB CONC 33.8 g/dl (32.0-36.5); MEAN CORPUSCULAR VOLUME 90.8 fl (80.0-96.0); PLATELET COUNT, AUTOMATED 289 10^3/uL (150-450); RED BLOOD COUNT 4.89 10^6/uL (4.00-5.40); WHITE BLOOD COUNT 11.1 10^3/uL (4.0-10.0)
[2019-07-25 07:43] LABS: INR 0.99; PROTHROMBIN TIME 12.8 SECONDS (11.8-14.0)
[2019-07-25 07:44] LABS: PARTIAL THROMBOPLASTIN TIME 29.2 SECONDS (25.0-38.4)
[2019-07-25] MEDS ORDERED: ISOVUE-370 76% 100ML VIAL (Q9967) As Ordered ONE (07:46)
--- NOTE | 2019-07-25 08:44 | REPVR ---
PROCEDURE INFORMATION: Exam: CT Angiography Neck With Contrast Exam date and time: 07/25/2019 7:56 AM Age: 33 years old Clinical indication: Pain; Headache; Additional info: Acute left posterior neck pain/tinajero R/O vertebral dissection TECHNIQUE: Imaging protocol: Computed tomography angiography of the neck with intravenous contrast. 3D rendering: MIP and/or 3D reconstructed images were created by the technologist. Radiation optimization: All CT scans at this facility use at least one of these dose optimization techniques: automated exposure control; mA and/or kV adjustment per patient size (includes targeted exams where dose is matched to clinical indication); or iterative reconstruction. Contrast material: ISOVUE 370; Contrast volume: 100 ml; Contrast route: IV; COMPARISON: No relevant prior studies available. FINDINGS: Limitations: Examination is limited by motion artifact. VASCULATURE: Right common carotid artery: No stenosis. No dissection or occlusion. Right internal carotid artery: No stenosis of the extracranial segment. No dissection or occlusion. Right external carotid artery: No occlusion or stenosis of the origin. Right vertebral artery: No stenosis. No dissection or occlusion. Left common carotid artery: The incidental common trunk of the brachiocephalic artery and left common carotid artery. No stenosis. No dissection or occlusion. Left internal carotid artery: No stenosis of the extracranial segment. No dissection or occlusion. Left external carotid artery: No occlusion or stenosis of the origin. Left vertebral artery: No stenosis. No dissection or occlusion. NECK: Bones/joints: No acute fracture. Soft tissues: Normal. IMPRESSION: No carotid artery stenosis. COMMENTS: Using NASCET method for measuring degree of carotid artery stenosis: Mild is less than 50% stenosis. Moderate is 50-69% stenosis. Severe is 70-94% stenosis. Near occlusion is 95-99% stenosis. Electronically signed by: Tata Forbes On 07/25/2019 08:44:31 AM
--- NOTE | 2019-07-25 08:44 | REPVR ---
PROCEDURE INFORMATION: Exam: CT Angiography Head With Contrast Exam date and time: 07/25/2019 7:56 AM Age: 33 years old Clinical indication: Pain; Headache; Additional info: Posterior headache R/O dissection TECHNIQUE: Imaging protocol: Computed tomography angiography of the head with intravenous contrast. 3D rendering: MIP and/or 3D reconstructed images were created by the technologist. Radiation optimization: All CT scans at this facility use at least one of these dose optimization techniques: automated exposure control; mA and/or kV adjustment per patient size (includes targeted exams where dose is matched to clinical indication); or iterative reconstruction. Contrast material: ISOVUE 370; Contrast volume: 100 ml; Contrast route: IV; COMPARISON: CT Head without contrast 07/25/2019 6:02 AM FINDINGS: Right internal carotid artery: Intracranial segment is patent with no significant stenosis or occlusion. No aneurysm. Right anterior cerebral artery: No occlusion or significant stenosis. No aneurysm. Right middle cerebral artery: No occlusion or significant stenosis. No aneurysm. 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 Right vertebral artery: No occlusion or significant stenosis. No aneurysm. Left internal carotid artery: Intracranial segment is patent with no significant stenosis or occlusion. No aneurysm. Left anterior cerebral artery: No occlusion or significant stenosis. No aneurysm. Left middle cerebral artery: No occlusion or significant stenosis. No aneurysm. Left posterior cerebral artery: No occlusion or significant stenosis. No aneurysm. Left vertebral artery: No occlusion or significant stenosis. No aneurysm. Basilar artery: No occlusion or significant stenosis. No aneurysm. Other vasculature: No evidence of an acute intracranial arterial abnormality. IMPRESSION: 1. 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 2. No evidence of an acute intracranial arterial abnormality. Electronically signed by: Juan Francisco Quintana On 07/25/2019 08:44:07 AM
[2019-07-25 09:03] VITALS: BP 142/78
== END 2019-07-25 09:04 | disposition home or self-care (01) ==
LOC: M ED 04:50
DX: R51 Headache (principal); I10 Essential (primary) hypertension; F41.9 Anxiety disorder, unspecified; Z79.899 Other long term (current) drug therapy; Z88.1 Allergy status to other antibiotic agents; Z88.2 Allergy status to sulfonamides; F17.210 Nicotine dependence, cigarettes, uncomplicated
CPT/HCPCS: 70450; 70496; 70498; 80047; 84702; 85027; 85610; 85730; 86850; 86900; 86901; 96360; 99284; Q0162; Q9967

== ENCOUNTER → 2020-11-23 | Outpatient (REF) | payer OTHER ==
[~2020-11-23] MED LIST changes: +ALPR0.5T3; +CITA40TA4
== END ==
LOC: M SFHCWAGY 13:00
PROVIDERS: ATTEND Advanced Practice Midwife
DX: Z12.4 Encounter for screening for malignant neoplasm of cervix (principal)

== ENCOUNTER → 2021-10-14 | Outpatient (REF) | payer OTHER ==
[~2021-10-14] MED LIST changes: +BISO1TAB18 PO; -BISO5TAB2 PO; -CITA40TA4; +CITA40TA7
[2021-10-14 19:03] LABS: GC DNA AMPLIFICATION NEGATIVE (NEGATIVE)
== END ==
LOC: M SFHCWAGY 16:49
PROVIDERS: ATTEND Specialist
DX: N76.0 Acute vaginitis (principal)

== ENCOUNTER → 2022-07-16 | Outpatient (CLI) | payer OTHER ==
[~2022-07-16] MED LIST changes: +ETON68IM SC; -NEXP1IMP SC
== END ==
LOC: M WUC 09:50
PROVIDERS: ATTEND Student in an Organized Health Care Education/Training Program
DX: R11.2 Nausea with vomiting, unspecified (principal); R19.7 Diarrhea, unspecified; K62.5 Hemorrhage of anus and rectum; K21.9 Gastro-esophageal reflux disease without esophagitis

== ENCOUNTER → 2022-07-17 | Outpatient (REF) | payer OTHER | LOC: M LAB REF 17:01 | PROVIDERS: ATTEND Student in an Organized Health Care Education/Training Program | DX: R11.2 Nausea with vomiting, unspecified (principal); K62.5 Hemorrhage of anus and rectum; K21.9 Gastro-esophageal reflux disease without esophagitis ==

== ENCOUNTER → 2023-04-28 | Outpatient (CLI) | payer OTHER ==
[~2023-04-28] MED LIST changes: +E-Z-GAS II EFFERVESCENT PACKET (SODIUM BICARB./CITRIC ACID/SIMETHICONE) As Ordered ONE; +E-Z-HD 98% w/w 340GM SUSP BTL As Ordered ONE; +E-Z-PAQUE 96% w/w SUSP 176GM BTL As Ordered ONE; +LORA1TAB23 PO; -LORA1TAB4 PO
== END ==
LOC: M RAD 09:07
PROVIDERS: ATTEND Physician Assistant
DX: R10.812 Left upper quadrant abdominal tenderness (principal); R11.2 Nausea with vomiting, unspecified

== ENCOUNTER 2024-09-06 01:53 | Emergency (ER) | payer OTHER ==
[~2024-09-06] VITALS: Ht 170.2 cm; Wt 90.8 kg
[~2024-09-06 01:53] MED LIST changes: -E-Z-GAS II EFFERVESCENT PACKET (SODIUM BICARB./CITRIC ACID/SIMETHICONE) As Ordered ONE; -E-Z-HD 98% w/w 340GM SUSP BTL As Ordered ONE; -E-Z-PAQUE 96% w/w SUSP 176GM BTL As Ordered ONE
[2024-09-06] MEDS ORDERED: KETO-204 PO (04:30)
[2024-09-06] MEDS: KETOROLAC 60MG 2ML VIAL IM ONE (05:31)
[2024-09-06 05:45] VITALS: BP 149/85; TEMP 98.1; O2SAT 98
== END 2024-09-06 05:55 | disposition home or self-care (01) ==
LOC: M ED 01:53
DX: K04.7 Periapical abscess without sinus (principal); Z79.2 Long term (current) use of antibiotics; Z79.899 Other long term (current) drug therapy; Z88.2 Allergy status to sulfonamides; Z88.1 Allergy status to other antibiotic agents
CPT/HCPCS: 96372; 99284; J1885

== ENCOUNTER → 2025-01-20 | Outpatient (CLI) | payer OTHER ==
[~2025-01-20] MED LIST changes: +KETO-204 PO
[2025-01-20 07:51] LABS: PLATELET COUNT, AUTOMATED 334 10^3/uL (150-450)
[2025-01-20 08:11] LABS: ESTIMATED AVERAGE GLUCOSE 114.0 MG/DL (60-110)
[2025-01-20 08:18] LABS: ALT/SGPT 18 U/L (7.0-40); AST/SGOT 13 U/L (<34); CALCIUM LEVEL 9.3 MG/DL (8.5-10.1); CARBON DIOXIDE LEVEL 27 MMOL/L (20-31); CHLORIDE LEVEL 109 MMOL/L (98-107); CHOLESTEROL LEVEL 169 MG/DL (<200); CHOLESTEROL RISK RATIO 5.46 (<5); CREATININE FOR GFR 0.73 MG/DL (0.55-1.30); GLOMERULAR FILTRATION RATE > 90.0 (>60); LDL CHOLESTEROL 89.1 MG/DL (<100); NON-HDL-C 138.1 MG/DL; POTASSIUM SERUM 4.7 MMOL/L (3.5-5.1); SODIUM LEVEL 141 MMOL/L (136-145); TRIGLYCERIDES LEVEL 245 MG/DL (<150)
== END ==
LOC: M LAB 06:57
PROVIDERS: ATTEND Physician Assistant
DX: E78.2 Mixed hyperlipidemia (principal); E11.9 Type 2 diabetes mellitus without complications; R42 Dizziness and giddiness

== ENCOUNTER → 2025-04-26 | Outpatient (CLI) | payer OTHER | LOC: M WHC 06:57 | PROVIDERS: ATTEND Physician Assistant | DX: R10.11 Right upper quadrant pain (principal) ==